=== PATIENT | female | born 1980 | race African-American/Black ===

== ENCOUNTER 2023-03-31 11:09 | Emergency (ER) | payer MEDICAID ==
[~2023-03-31] VITALS: Ht 167.6 cm; Wt 81.0 kg
[2023-03-31 11:21] VITALS: O2SAT 97
[2023-03-31] MEDS ORDERED: AMOX1TAB16 MT (12:04)
[2023-03-31] MEDS ORDERED: TOPUD MT (12:04)
[2023-03-31] MEDS ORDERED: NAPR-681 MT (12:04)
[2023-03-31 12:25] VITALS: BP 157/99; PULSE 85; RESP 18; TEMP 99.5
== END 2023-03-31 13:17 | disposition home or self-care (01) ==
LOC: ER 11:09
DX: K04.7 Periapical abscess without sinus (principal)
CPT/HCPCS: 99283

== ENCOUNTER 2025-04-18 15:46 | Emergency (ER) | payer MEDICAID ==
[~2025-04-18] VITALS: Ht 170.2 cm; Wt 102.0 kg
[~2025-04-18 15:46] MED LIST: AMOX1TAB16 MT; NAPR-681 MT; TOPUD MT
[2025-04-18 15:50] VITALS: O2SAT 98
[2025-04-18 18:26] LABS: ADD RBC MORPHOLOGY YES; BASOPHILS % 1.3 % (0.0-2.0); EOSINOPHILS % 4.3 % (0.0-5.0); HEMATOCRIT. 40.6 % (36.0-48.0); HEMOGLOBIN. 13.1 g/dL (12.0-16.0); LYMPHOCYTES % 41.8 % (20.0-50.0); MEAN PLATELET VOLUME 8.9 fl (7.4-10.4); MONOCYTES % 10.8 % (2.0-8.0); NEUTROPHILS % 41.8 % (40.0-76.0); PLATELET 205 x1000/uL (130-400); RED BLOOD CELL COUNT 3.60 mill/uL (4.2-5.4); RED CELL DISTRIBUTION WIDTH 17.1 % (11.6-14.6)
[2025-04-18 18:37] LABS: HCG SCREEN NEGATIVE
[2025-04-18 18:39] LABS: CREATININE 0.8 mg/dL (0.6-1.0); UREA NITROGEN BLOOD < 5 mg/dL (9-23)
[2025-04-18 18:40] LABS: TROPONIN I HIGH SENSITIVITY < 4 ng/L (3.0-34)
[2025-04-18 18:41] LABS: ASPARTATE AMINOTRANSFERASE 86 IU/L (<34); BILIRUBIN DIRECT 0.2 mg/dL (<=3.0); BILIRUBIN TOTAL 0.4 mg/dL (0.1-1.0); PROTEIN TOTAL 7.4 g/dL (6.0-8.3)
[2025-04-18 18:44] LABS: PLATELET ESTIMATE NORMAL
[2025-04-18 19:06] LABS: ETHANOL BLOOD 368 mg/dL (<10)
[2025-04-18] MEDS ORDERED: HYDR453.3 TP (20:13)
[2025-04-18 20:52] VITALS: BP 114/75; PULSE 91; RESP 16; TEMP 37; O2SAT 99
== END 2025-04-18 20:57 | disposition home or self-care (01) ==
LOC: ER 15:46
DX: R21 Rash and other nonspecific skin eruption (principal); R07.89 Other chest pain; F10.90 Alcohol use, unspecified, uncomplicated; Z59.00 Homelessness unspecified; Z79.1 Long term (current) use of non-steroidal anti-inflammatories (NSAID); Z90.49 Acquired absence of other specified parts of digestive tract; Y90.8 Blood alcohol level of 240 mg/100 ml or more
CPT/HCPCS: 80076; 80048; 80320; 84703; 83690; 83735; 85025; 84484; 36415; 71045; 93005; 99285; Z7610 ×2; G0480